=== PATIENT | female | born 1955 | race Caucasian/White ===

== ENCOUNTER → 2016-11-16 | Outpatient (CLI) | payer BC | LOC: MC.RAD 06:59 | DX: Z12.31 Encounter for screening mammogram for malignant neoplasm of breast (principal); R92.1 Mammographic calcification found on diagnostic imaging of breast ==

== ENCOUNTER 2019-07-16 23:35 | Emergency (ER) | payer BC ==
[~2019-07-16] VITALS: Ht 170.2 cm; Wt 85.0 kg
[2019-07-16 23:53] VITALS: TEMP 98
[2019-07-17] MEDS ORDERED: ZESTRIL 10MG10 MG PO (00:46)
[2019-07-17] MEDS ORDERED: GLUCOPHAGE500 MG/TAB PO (00:47)
[2019-07-17 01:44] VITALS: BP 136/77; PULSE 72
== END 2019-07-17 01:44 | disposition home or self-care (01) ==
LOC: COL.ER 23:35
DX: S96.911A Strain of unspecified muscle and tendon at ankle and foot level, right foot, initial encounter (principal); S80.02XA Contusion of left knee, initial encounter; S80.01XA Contusion of right knee, initial encounter; Z88.0 Allergy status to penicillin; Z79.84 Long term (current) use of oral hypoglycemic drugs; W10.9XXA Fall (on) (from) unspecified stairs and steps, initial encounter; X50.1XXA Overexertion from prolonged static or awkward postures, initial encounter

== ENCOUNTER → 2020-05-23 | Outpatient (CLI) | payer BC ==
[~2020-05-23] MED LIST: GLUCOPHAGE500 MG/TAB PO; ZESTRIL 10MG10 MG PO
== END ==
LOC: MC.RAD 13:15
DX: Z12.31 Encounter for screening mammogram for malignant neoplasm of breast (principal)

== ENCOUNTER → 2022-09-13 | Outpatient (CLI) | payer BC | LOC: MC.RAD 08:43 | DX: Z12.31 Encounter for screening mammogram for malignant neoplasm of breast (principal) ==